=== PATIENT | male | born 1960 | race Asian ===

== ENCOUNTER 2019-01-03 00:12 | Emergency (ER) | payer MEDICARE ==
[~2019-01-03] VITALS: Ht 172.7 cm; Wt 82.6 kg
[2019-01-03 03:29] VITALS: BP 132/77
[2019-01-03] MEDS ORDERED: DexAMETHasone SOD PHOS 10MG/1ML VIAL INJ IM ONE (03:30)
[2019-01-03] MEDS ORDERED: ACETAMINOPHEN/CODEINE#3 (300/30mg) TAB PO ONE (03:30)
[2019-01-03] MEDS ORDERED: cefTRIAXone SOD 1,000 MG VL IM ONE (03:30)
== END 2019-01-03 04:11 | disposition home or self-care (01) ==
LOC: ER 00:12
DX: K02.9 Dental caries, unspecified (principal); Z88.8 Allergy status to other drugs, medicaments and biological substances
CPT/HCPCS: 96372; 99283; J0696; J1100

== ENCOUNTER 2021-04-10 20:28 | Emergency (ER) | payer BC, MEDICARE ==
[~2021-04-10] VITALS: Ht 170.2 cm; Wt 81.6 kg
[2021-04-10 22:30] LABS: Basophils # (auto) 0.2 10 ^3/uL (0-0.2); Basophils % (auto) 1.8 % (0.0-2.0); Eosinophils # (auto) 0.2 10 ^3/uL (0-0.8); Eosinophils % (auto) 2.3 % (0.0-7.0); Hematocrit 45.9 % (41.0-53.0); Hemoglobin 16.1 g/dL (13.5-17.5); Lymphocytes # (auto) 2.6 10 ^3/uL (0.4-5.4); Lymphocytes % (auto) 28.5 % (10.0-50.0); Mean Corpuscular Hemoglobin 31.8 pg (28.0-32.0); Mean Corpuscular Hgb Conc. 35.1 g/dL (32.0-36.0); Mean Corpuscular Volume 90.6 fL (80.0-100.0); Monocytes # (auto) 0.6 10 ^3/uL (0-1.3); Monocytes % (auto) 6.9 % (0.0-12.0); Neutrophils # (auto) 5.4 10 ^3/uL (1.6-8.6); Neutrophils % (auto) 60.5 % (37.0-80.0); Nucleated Red Blood Cells % 0.3 %; Red Blood Cells 5.06 10^6/uL (4.5-5.90); Red Cell Distribution Width 12.9 % (11.8-14.3)
[2021-04-10 22:50] LABS: Albumin 4.2 g/dL (3.4-5.0); BUN/Creatinine Ratio 15.2; Calcium 9.3 mg/dL (8.5-10.1); Potassium 3.6 mmol/L (3.5-5.1)
[2021-04-10 22:55] LABS: Bilirubin, Total 0.8 mg/dL (0.2-1.0); Total Protein 7.5 g/dL (6.4-8.2)
[2021-04-10] MEDS ORDERED: LORazepam 0.5 MG TAB PO ONE (23:00)
[2021-04-11 00:20] VITALS: BP 142/93
== END 2021-04-11 00:24 | disposition home or self-care (01) ==
LOC: ER 20:29
DX: M62.838 Other muscle spasm (principal); R06.02 Shortness of breath; M54.50 Low back pain, unspecified; R07.89 Other chest pain; M10.9 Gout, unspecified; G89.29 Other chronic pain; Z88.0 Allergy status to penicillin; Z88.8 Allergy status to other drugs, medicaments and biological substances
CPT/HCPCS: 36415; 71045; 80053; 83880; 84484; 85025; 93005

== ENCOUNTER 2023-08-12 03:17 | Emergency (ER) | payer BC ==
[~2023-08-12] VITALS: Ht 167.6 cm; Wt 90.4 kg
[2023-08-12 03:17] VITALS: BP 139/85; PULSE 65; RESP 20; O2SAT 96
[~2023-08-12 03:17] MED LIST: IBUP-1455 PO
== END 2023-08-12 05:00 | disposition left against medical advice (07) ==
LOC: ER 03:24
DX: M79.675 Pain in left toe(s) (principal); Z53.21 Procedure and treatment not carried out due to patient leaving prior to being seen by health care provider